=== PATIENT | female | born 1955 | race American Indian/Alaskan Native ===

== ENCOUNTER 2016-12-14 09:48 | Emergency (ER) | payer OTHER ==
--- NOTE | 2016-12-14 10:27 | C.PDOC ---
History Of Present Illness 12/14/2016 Niki Cueto is a 61 y/o female who presents to the emergency department complaining of a laceration on left side of forehead after a mechanical fall prior to arrival. Patient reports she was walking when she tripped on a pothole and fell landing on her face. Patient also complains of a swollen lip and right knee pain. Patient denies any loss of consciousness, headache, dizziness, visual changes, shortness of breath, nausea, vomiting, or other complaints. Time Seen by Provider: 12/14/16 10:02 Chief Complaint (Nursing): Abnormal Skin Integrity History Per: Patient History/Exam Limitations: no limitations Onset/Duration Of Symptoms: Hrs (prior to arrival), Sudden Onset Patient States: Other (tripped and fell stiking face) Loss Of Consciousness: No Past Medical History Reviewed: Historical Data, Nursing Documentation, Vital Signs Vital Signs: Last Vital Signs Temp 98.2 F 12/14/16 11:54 Pulse 71 12/14/16 11:54 Resp 18 12/14/16 11:54 BP 131/75 12/14/16 11:54 Pulse Ox 98 12/14/16 11:54 - Medical History PMH: No Chronic Diseases Surgical History: No Surg Hx Family History: States: Unknown Family Hx - Social History Hx Alcohol Use: No Hx Substance Use: No - Immunization History Hx Tetanus Toxoid Vaccination: Yes Hx Influenza Vaccination: Yes Hx Pneumococcal Vaccination: Yes Review Of Systems Constitutional: Negative for: Fever Eyes: Negative for: Vision Change Cardiovascular: Negative for: Chest Pain Respiratory: Negative for: Shortness of Breath Gastrointestinal: Negative for: Nausea, Vomiting Musculoskeletal: Positive for: Other (right knee pain) Skin: Positive for: Other (laceration on left side of forehead) Neurological: Negative for: Weakness, Numbness, Confusion, Headache, Dizziness Physical Exam - Physical Exam Appears: Non-toxic, No Acute Distress Skin: Warm, Dry, No Ecchymosis Head: Normacephalic, Laceration (1cm laceration to left forehead. No active bleeding) Eye(s): bilateral: Normal Inspection, PERRL, EOMI Nose: Normal, No Epistaxis, No Deformity, No Tenderness Oral Mucosa: No Trismus Lips: Swelling (left side of upper lip and above upper lip is tender and swollen ), No Laceration Teeth: Normal Dentition, No Loose (intact) Gingiva: Normal Appearing Throat: Normal Neck: Normal ROM, No Midline Cervical Tenderness, No Paracervical Tenderness, Supple Chest: Symmetrical Cardiovascular: Rhythm Regular, No Murmur Respiratory: Normal Breath Sounds, No Wheezing Extremity: Normal ROM, Tenderness (right anterior knee mild tenderness), No Deformity, No Swelling Neurological/Psych: Oriented x3, Normal Speech, Normal Motor, Normal Sensation Gait: Steady ED Course And Treatment O2 Sat by Pulse Oximetry: 98 (room air) Pulse Ox Interpretation: Normal Laceration - Laceration Repair forehead Wound Length (In cm): 1.5 Description Of Wound: Irregular Anesthesia: Lidocaine 1% Wound Examination: Irrigated With Saline, No FB With Wound Exploration Wound Closure: Suture Suture Technique And Material Used: Interrupted (2), Prolene (5-0) Wound Complexity: Simple Medical Decision Making Medical Decision Making: Impression: facial injury Plan: * CT maxillofacial * Tylenol * ice pack Progress Notes: 12/14/2016 11:20 CT maxillofacial: Creator : Sai Mehta MD Findings: Extensive dental hardware causes streak artifact, somewhat limiting evaluation of the osseous structures. No evidence of acute displaced fracture dislocation. Soft tissue swelling overlying the left maxillofacial soft tissues most prominent at the level of the left maxilla. Retained tooth at the level of the posterior right maxilla near the right maxillary sinus. Mild mucosal thickening of the left maxillary sinus. Moderate mucosal thickening of the ethmoid air cells. Remainder of the visualized paranasal sinuses appear preserved. Bilateral mastoid air cells are preserved. Orbital globes are preserved. Leftward nasal septal deviation. Mucosal thickening and hypertrophy of the inferior nasal turbinates. Incidentally noted is some minimal anterolisthesis of C3 on C4 with a posterior disc osteophyte complex at that level. Impression: 1. Extensive dental hardware causes streak artifact, somewhat limiting evaluation of the osseous structures. No evidence of acute displaced fracture dislocation. 2. Soft tissue swelling overlying the left maxillofacial soft tissues most prominent at the level of the left maxilla. 3. Retained tooth at the level of the posterior right maxilla near the right maxillary sinus. Mild mucosal thickening of the left maxillary sinus. Moderate mucosal thickening of the ethmoid air cells. 4. Leftward nasal septal deviation. 5. Mucosal thickening and hypertrophy of the inferior nasal turbinates. 6. Incidentally noted is some minimal anterolisthesis of C3 on C4 with a posterior disc osteophyte complex at that level. Upon reevaluation patient remained well in no acute distress. She is alert and oriented and in good spirits. She feels comfortable going home and advised to rest, ice and take analgesics as needed. Patient given copy of CT results and follow up instructions and wound care. Disposition Counseled Patient/Family Regarding: Diagnosis, Need For Followup - Disposition Disposition: HOME/ ROUTINE Disposition Time: 11:26 Condition: STABLE Additional Instructions: Your laceration was closed with 2 sutures. Keep area clean, dry, and covered for 24 hours. After 24 hours you may remove the dressing. May wash gently with soap and water, do not use alcohol or iodine solution. Change dressing 1-2 times daily. Return to ER if fever occurs, redness or swelling around wound, pus in the wound. Please follow up with your primary doctor, clinic, or urgent care for suture removal in 7 days Return to the ER if any alteration in behavior or mental status, severe headache , nausea, persistent vomiting, or loss of consciousness occurs. Instructions: Care For Your Stitches (ED), Facial Contusion (ED) Forms: [employer] (Kosovan) - POA Present On Arrival: Falls Or Trauma - Clinical Impression Clinical Impression: Forehead laceration, Facial contusion, Accidental fall - Scribe Statement The provider has reviewed the documentation as recorded by the Scribe 12/14/2016 Scribe Attestation: Priscilla High MD Scribe Attestation: All medical record entries made by the Scribe were at my direction and personally dictated by me. I have reviewed the chart and agree that the record accurately reflects my personal performance of the history, physical exam, medical decision making, and the department course for this patient. I have also personally directed, reviewed, and agree with the discharge instructions and disposition.
[2016-12-14 10:50] VITALS: RESP 18; TEMP 98.2; O2SAT 98; BMI 19.8
[2016-12-14] MEDS ORDERED: Lidocaine 1% Inj (20ml) INFIL STA (10:58)
[2016-12-14] MEDS ORDERED: Lidocaine 1% Inj (20ml) ONE (11:00)
[2016-12-14] MEDS ORDERED: Bacitracin 500 Units/gm Oint Foilpak UD ONE (11:04)
--- NOTE | 2016-12-14 11:19 | CT ---
CT maxillofacial History: Left facial soft tissue swelling. Comparison: None available. Technique: Multiple contiguous axial images were performed through the maxillofacial region. Subsequently, sagittal coronal reformatted images were obtained. Findings: Extensive dental hardware causes streak artifact, somewhat limiting evaluation of the osseous structures. No evidence of acute displaced fracture dislocation. Soft tissue swelling overlying the left maxillofacial soft tissues most prominent at the level of the left maxilla. Retained tooth at the level of the posterior right maxilla near the right maxillary sinus. Mild mucosal thickening of the left maxillary sinus. Moderate mucosal thickening of the ethmoid air cells. Remainder of the visualized paranasal sinuses appear preserved. Bilateral mastoid air cells are preserved. Orbital globes are preserved. Leftward nasal septal deviation. Mucosal thickening and hypertrophy of the inferior nasal turbinates. Incidentally noted is some minimal anterolisthesis of C3 on C4 with a posterior disc osteophyte complex at that level. Impression: 1. Extensive dental hardware causes streak artifact, somewhat limiting evaluation of the osseous structures. No evidence of acute displaced fracture dislocation. 2. Soft tissue swelling overlying the left maxillofacial soft tissues most prominent at the level of the left maxilla. 3. Retained tooth at the level of the posterior right maxilla near the right maxillary sinus. Mild mucosal thickening of the left maxillary sinus. Moderate mucosal thickening of the ethmoid air cells. 4. Leftward nasal septal deviation. 5. Mucosal thickening and hypertrophy of the inferior nasal turbinates. 6. Incidentally noted is some minimal anterolisthesis of C3 on C4 with a posterior disc osteophyte complex at that level.
[2016-12-14 11:56] VITALS: BP 131/75; PULSE 71
== END 2016-12-14 11:56 | disposition home or self-care (01) ==
LOC: C.ER 09:48
DX: S01.81XA Laceration without foreign body of other part of head, initial encounter (principal); W01.0XXA Fall on same level from slipping, tripping and stumbling without subsequent striking against object, initial encounter; Y93.01 Activity, walking, marching and hiking; Z23 Encounter for immunization